=== PATIENT | female | born 1970 | race Caucasian/White ===

== ENCOUNTER → 2020-01-04 10:41 | Outpatient (CLI) | payer OTHER, SELFPAY ==
[2020-01-04 11:47] LABS: Basophils % 0.8 % (0.1-2.0); Eosinophils # 0.1 K/mm3 (0.0-0.4); Eosinophils % 1.2 % (0.1-12.0); Hematocrit 51.2 % (37.0-47.0); Hemoglobin 17.1 g/dL (12.2-16.2); Lymphocytes # 1.8 K/mm3 (0.7-4.5); Lymphocytes % 32.5 % (10-50); Mean Corpuscular HGB Conc 33.4 g/dL (31.8-35.4); Mean Corpuscular Hemoglobin 33.2 pg (27.0-31.2); Mean Corpuscular Volume 99.4 fl (81-99); Mean Platelet Volume 7.5 fl (7.4-10.4); Monocytes # 0.3 K/mm3 (0.1-1.0); Neutrophils # 3.3 K/mm3 (1.8-7.8); Neutrophils % 60.5 % (37.0-80.0); Platelet Count 288 K/mm3 (142-424); Red Blood Count 5.15 M/mm3 (4.20-5.40); Red Cell Distribution Width 12.7 % (11.5-17.5); White Blood Count 5.4 K/mm3 (4.8-10.8)
[2020-01-04 12:29] LABS: Erythrocyte Sedimentation Rate 4 mm/hr (0-20)
[2020-01-04 13:32] LABS: Uric Acid 3.8 mg/dl (2.5-6.2)
[2020-01-04 13:37] LABS: C-Reactive Protein < 0.3 mg/L (0-4)
[2020-01-05 10:07] LABS: RA Latex Turbid. <10.0 IU/mL (0.0-13.9)
[2020-01-05 15:09] LABS: Angiotensin Converting Enzyme 22 U/L (14-82)
[2020-01-05 21:53] LABS: Cytoplasmic (C-ANCA) <1:20 titer (Neg:<1:20)
[2020-01-06 09:34] LABS: Anti-DNA (DS) Ab Qn <1 IU/mL (0-9); Perinuclear (P-ANCA) <1:20 titer (Neg:<1:20); Rapid Plasma Reagin Ab Titer Non Reactive (NonRea<1:1); Treponema pallidum Ab (FTA-ABS Non Reactive (Non Reactive)
[2020-01-07 04:27] LABS: Antinuclear Antibodies, IFA Negative (.)
[2020-01-08 05:38] LABS: QuantiFERON-TB Gold Plus Negative (Negative)
[2020-01-11 09:59] LABS: HLA-B27 Negative (.)
== END ==
PROVIDERS: Visit Provider Pediatrics
DX: H20.9 Unspecified iridocyclitis (principal)
CPT/HCPCS: 36415; 82164; 84550; 85025; 85651; 86038; 86140; 86225; 86256; 86431; 86480; 86592; 86780; 86812

== ENCOUNTER → 2021-08-25 11:30 | Outpatient (CLI) | payer OTHER, SELFPAY | PROVIDERS: Visit Provider Ophthalmology | DX: Z01.812 Encounter for preprocedural laboratory examination (principal); Z20.822 Contact with and (suspected) exposure to COVID-19 | CPT/HCPCS: C9803; U0003; U0005 ==

== ENCOUNTER 2021-08-28 10:02 | Day surgery (SDC) | payer OTHER, SELFPAY ==
[2021-08-23 13:20] VITALS: BMI 21.9
[2021-08-28] VITALS (7 sets, daily range): BP systolic 115–133; BP diastolic 65–81; PULSE 80–98; RESP 16–18; TEMP 36.3–37.1; O2SAT 96–100
== END 2021-08-28 13:04 | disposition home or self-care (01) ==
LOC: OR 10:06
PROVIDERS: Visit Provider Ophthalmology
PROC: (CPT 66982; principal; 2021-08-28 12:30)
DX: H25.813 Combined forms of age-related cataract, bilateral (principal); H02.839 Dermatochalasis of unspecified eye, unspecified eyelid; H57.03 Miosis; F41.9 Anxiety disorder, unspecified; Z79.899 Other long term (current) drug therapy
CPT/HCPCS: 66982; V2632

== ENCOUNTER → 2021-09-15 12:13 | Outpatient (CLI) | payer OTHER, SELFPAY | PROVIDERS: PCP Pediatrics; Visit Provider Ophthalmology | DX: Z01.812 Encounter for preprocedural laboratory examination (principal); Z20.822 Contact with and (suspected) exposure to COVID-19 | CPT/HCPCS: C9803; U0003; U0005 ==

== ENCOUNTER 2021-09-18 08:50 | Day surgery (SDC) | payer OTHER, SELFPAY ==
[2021-09-18] VITALS (7 sets, daily range): BP systolic 91–127; BP diastolic 66–77; PULSE 80–97; RESP 18; TEMP 36.1–36.5; O2SAT 93–100; BMI 21.9
== END 2021-09-18 11:30 | disposition home or self-care (01) ==
LOC: OR 08:52
PROVIDERS: Visit Provider Ophthalmology
PROC: (CPT 66982; principal; 2021-09-18 11:00)
DX: H26.20 Unspecified complicated cataract (principal); H57.03 Miosis; F41.9 Anxiety disorder, unspecified; Z72.0 Tobacco use
CPT/HCPCS: 66982; V2632

== ENCOUNTER → 2021-11-26 09:46 | Outpatient (CLI) | payer OTHER, SELFPAY ==
--- NOTE | 2021-11-26 09:53 | XR_ITS ---
FINAL REPORT TECHNIQUE: Chest PA & Lateral CLINICAL HISTORY: PANUVEITIS. 0 chest complaints FINDINGS: Two views of the chest were performed. The heart size is normal. The mediastinum is within normal limits. There is a calcified granuloma in the right middle lung. There are no pleural effusions. There is no pneumothorax. The bony thorax appears intact. IMPRESSION: Calcified granuloma in the right middle lung. Reviewed, Interpreted and Dictated by Khris Castro MD Transcribed by Casie Mathis Authenticated and [facility]
[2021-11-26 10:51] LABS: Basophils # 0.1 K/mm3 (0-0.2); Basophils % 1.3 % (0.1-2.0); Eosinophils # 0.1 K/mm3 (0.0-0.4); Eosinophils % 1.6 % (0.1-12.0); Hematocrit 47.7 % (37.0-47.0); Hemoglobin 15.2 g/dL (12.2-16.2); Lymphocytes # 2.1 K/mm3 (0.7-4.5); Lymphocytes % 33.9 % (10-50); Mean Corpuscular HGB Conc 31.9 g/dL (31.8-35.4); Mean Corpuscular Hemoglobin 31.8 pg (27.0-31.2); Mean Corpuscular Volume 99.8 fl (81-99); Mean Platelet Volume 8.2 fl (7.4-10.4); Monocytes # 0.3 K/mm3 (0.1-1.0); Neutrophils # 3.5 K/mm3 (1.8-7.8); Neutrophils % 58.2 % (37.0-80.0); Platelet Count 303 K/mm3 (142-424); Red Blood Count 4.78 M/mm3 (4.20-5.40); Red Cell Distribution Width 12.4 % (11.5-17.5); White Blood Count 6.1 K/mm3 (4.8-10.8)
[2021-11-26 11:19] LABS: C-Reactive Protein < 0.3 mg/L (0-4)
[2021-11-26 11:25] LABS: Erythrocyte Sedimentation Rate 8 mm/hr (0-30)
[2021-11-27 09:19] LABS: Toxoplasma gondii Ab,IgG,Qn <3.0 IU/mL (0.0-7.1); Toxoplasma gondii Ab,IgM,Qn <3.0 AU/mL (0.0-7.9)
[2021-11-27 12:20] LABS: Rapid Plasma Reagin Ab Titer Non Reactive (NonRea<1:1)
[2021-11-27 14:11] LABS: Angiotensin Converting Enzyme 23 U/L (14-82)
[2021-11-27 17:51] LABS: Treponema pallidum Ab (FTA-ABS Non Reactive (Non Reactive)
[2021-11-29 18:09] LABS: QuantiFERON-TB Gold Plus Negative (Negative)
== END ==
PROVIDERS: PCP Ophthalmology Retina Specialist; Visit Provider Ophthalmology Retina Specialist
DX: H44.113 Panuveitis, bilateral (principal)
CPT/HCPCS: 36415; 71046; 82164; 85025; 85651; 86140; 86480; 86592; 86777; 86780